=== PATIENT | male | born 1990 | race African-American/Black ===

== ENCOUNTER 2019-11-07 07:05 | Inpatient (IN) | payer OTHER ==
[~2019-11-07] VITALS: Ht 167.6 cm; Wt 68.9 kg
[2019-11-07 07:06] VITALS: BP 117/65
[2019-11-07 14:34] LABS: ABSOLUTE NEUTROPHILS 4.4 thou/uL (1.4-8.2); BASOPHILS 0.4 % (0.0-2.0); EOSINOPHILS 2.7 % (0.0-3.0); HEMATOCRIT 43.4 % (42.0-52.0); LYMPHOCYTES 28.8 % (24.0-44.0); MCH 33.3 pg (26.0-34.0); MCHC 34.6 g/dL (28.0-37.0); MCV 96.2 fL (80.0-100.0); MONOCYTES 7.4 % (1.0-8.0); PLATELET COUNT 347 thou/uL (150-400); POLYS 60.7 % (36.0-66.0); RBC 4.51 mil/uL (4.50-6.00); RDW 13.6 % (10.5-14.5); WBC 7.2 thou/uL (4.0-11.0)
[2019-11-07 14:38] LABS: CALCIUM 8.7 mg/dL (8.5-10.1); CREATININE 1.1 mg/dL (0.7-1.3); POTASSIUM 3.2 mmol/L (3.5-5.1)
[2019-11-07 15:48] LABS: URINE BILIRUBIN 1+ (Negative); URINE BLOOD NEGATIVE (Negative); URINE CLARITY CLEAR; URINE COLOR YELLOW; URINE GLUCOSE-RANDOM* NEGATIVE (Negative); URINE KETONES 1+ (Negative); URINE LEUKOCYTES-REFLEX NEGATIVE (Negative); URINE NITRITE-REFLEX NEGATIVE (Negative); URINE PROTEIN (DIPSTICK) NEGATIVE (Negative); URINE SPECIFIC GRAVITY 1.025 (1.005-1.035)
[2019-11-07 15:55] LABS: AMP/METHAMP POSITIVE (Negative); BARBITURATES Negative (Negative); BENZODIAZEPINES Negative (Negative); COCAINE POSITIVE (Negative); METHADONE Negative (Negative); OPIATES POSITIVE (Negative); PCP Negative (Negative)
[2019-11-07 16:10] VITALS: BP 108/75
[2019-11-07 16:30] VITALS: BP 108/75
[2019-11-07 16:51] VITALS: BP 105/70
--- NOTE | 2019-11-07 17:22 | NUR ---
PATIENT UP TO FLOOR AT 1720. WRISTBANDS ON, APPROPRIATE SCREENINGS DONE. PATIENT IS RESTING IN BED W EYES CLOSED; EDEMA TO BILATERAL EYES. HX AND EDUCATION COMPLETED. VOICES NO OTHER NEEDS. WILL CONTINUE TO MONITOR
[2019-11-07 17:48] VITALS: BP 105/70
[2019-11-07 19:12] LABS: MAGNESIUM 1.8 mg/dL (1.8-2.4); PHOSPHORUS 2.8 mg/dL (2.5-4.9)
[2019-11-08 04:54] VITALS: BP 104/69
[2019-11-08 06:03] LABS: ABSOLUTE NEUTROPHILS 2.8 thou/uL (1.4-8.2); BASOPHILS 0.5 % (0.0-2.0); EOSINOPHILS 3.1 % (0.0-3.0); HEMATOCRIT 41.8 % (42.0-52.0); MCHC 33.5 g/dL (28.0-37.0); MCV 98.7 fL (80.0-100.0); MONOCYTES 6.7 % (1.0-8.0); PLATELET COUNT 336 thou/uL (150-400); POLYS 42.7 % (36.0-66.0); RBC 4.24 mil/uL (4.50-6.00); RDW 13.8 % (10.5-14.5); WBC 6.7 thou/uL (4.0-11.0)
[2019-11-08 06:33] LABS: ALBUMIN 3.2 g/dL (3.4-5.0); CALCIUM 8.6 mg/dL (8.5-10.1); CREATININE 1.2 mg/dL (0.7-1.3); MAGNESIUM 1.7 mg/dL (1.8-2.4); PHOSPHORUS 3.1 mg/dL (2.5-4.9); POTASSIUM 3.9 mmol/L (3.5-5.1); TOTAL BILIRUBIN 0.3 mg/dL (0.2-1.0); TOTAL PROTEIN 6.9 g/dL (6.4-8.2)
--- NOTE | 2019-11-08 07:29 | NUR ---
ASSUMED PT CARE AROUND 1930. AXOX2. UNCOOERATIVE TO CARE. DOES NOT WATN TO TURN FOR ASSESSMENT, DOES NOT WANT TO PARTICIPATE IN ANY CONVERSATION THAN FOOD AND PAIN MEDS. VSS. ALL NEEDS MET SINCE PT'S VISION IS IMPAIRED. NO S/S ACUTE DISTRESS NOTED OR REPORTED AT THIS TIME. CARE TRANSFERRED TO AM RN AT THIS TIME.
[2019-11-08 07:48] VITALS: BP 116/73
[2019-11-08 15:09] VITALS: BP 118/76
--- NOTE | 2019-11-08 16:53 | NUR ---
ASSUMED CARE OF PATIENT AT SHIFT CHANGE. ASSESSMENT CHARTED. MEDICATIONS GIVEN PER MAR. VSS. PATIENTS MAIN COMPLAINT IS PAIN AND HUNGER. DOCTOR WAS PAGED AND AWARE. PATIENT IS VERY UPSET AND ANXIOUS. ONCE PRN PAIN MEDS WERE IN PYXIS, MEDS WERE ADMINISTERED W ASSIST FROM YARITZA FERNANDEZ. PATIENT STILL C/O SEVERE ANXIETY. DOCTOR WAS PAGED. PATIENTS EYES ARE CLOSED. NEEDS ASSIST TO BATHROOM. MAGNESIUM AND ABX INFUSING ON L AC W NO ISSUES. PRN PAIN MEDS ADMINISTERED AT 1100 DURING DOWNTIME. FALL PRECAUTIONS IN PLACE. WILL [id number] TO MONITOR PATIENT AND FOLLOW POC
--- NOTE | 2019-11-08 17:00 | NUR ---
I AGREE WITH NURSING ASSESSMENT AND NURSING NOTE DONE BY LON[facility]NURSING ASS[facility].
[2019-11-08 19:15] VITALS: BP 123/78
--- NOTE | 2019-11-08 21:00 | NUR ---
Pt. had disconnected his iv while vancomycin was infusing and had left his room. Security and house father were called. Then, pt. observed walking down the hallway towards his room. Pt. said he was looking for a vending machine. Pt. instructed to not touch his iv and only the nurses could dis- connect it due to infection control issues. Pt. c/o being anxious and wanted some ativan. Shaunna REDD called (see cpoe). He was also asked to not leave his room.
--- NOTE | 2019-11-09 04:59 | NUR ---
Pt. did sleep at short intervals during the night when checked on during frequent rounds. He calls out frequently for pain medication and snacks. Pain meds given as ordered (see emar) with some relief noted. Zofran also given iv for nausea with relief noted.
[2019-11-09 07:45] VITALS: BP 120/85
--- NOTE | 2019-11-09 09:47 | NUR ---
PT ADMITTED RELATED TO FACIAL TRAUMA, BILOATERAL HEMATOMA, CONJUCTIVITIS. CM REVIEWED CHART AND SPOKE [facility] CARE TEAM. CM CALLED AND SPOKE WITH PT AT [facility] YESTERDAY. PT INDICATED HE LIVES IN A SECOND FLOOR APARTMENT ALONE WITH 30 STEPS TO ENTER AND NONE INSIDE. 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 PT ASKED FOR ASSISTANCE IN RELOCATING TO [place]. CM INDICATED THAT CM DIDN'T HAVE RESOURCES TO ASSIST WITH RELOCATION. PT INDICATED HE IS INTERESTED IN GOING TO A SKILLED FACILITY [place]ON [place]. CM INDICATECD CM WOULD PROVIDE A SNF LIST FOR PT TO REVIEW. CARE TEAM INDICATING THAT PT WILL NEED 7-10 DAYS OF IV ABX UPON [place]. CM TO FOLLOW UP WITH PT.
--- NOTE | 2019-11-09 12:00 | NUR ---
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 Was seen bythe ESTHETICIAN waling out to the elevator andback, was informed he is not allowed sinve he is In-pt., COVD and MRSA test refused d/t bere clark MD informed.
--- NOTE | 2019-11-09 12:08 | NUR ---
CM FOLLOWED UP WITH PT AFTER PHYSICIAN VISITED THIS AM. HAD INDICATED THAT PT NO LONGER WANTED TO GO TO A FACILITY THAT HE WANTED TO GO HOME SO HE COULD GO TO AN OUTPATIENT PAIN MANAGEMENT APPOINTMENT. CM CALLED TO SPEAK WITH PT AND HE INDICATED THAT WASN'T WHAT HE HAD SAID THAT HE WAS AGREEABLE TO GOING SKILLED IF THAT IS WHAT THEY THOUGHT HE SHOULD DO. CM EXPLAINED THAT HE WOULDN'T BE ABLE TO GO TO OP PAIN APPOINTMENT IF HE WENT TO SNF. PT INDICATED THAT HE WAS THINKING THAT HE MIGHT JUST WANT TO GO HOME. PHYSICIAN INDICATED HE NEEDED TO BE SEEN BY OPTHALMOLOGY. CM [facility] AND THEY INDICATED THAT PT WAS SUPPOSED TO BE SEEN AT 10:20 THIS AM BUT NEVER SHOWED. CM APPOLOGIZED BUT THAT INFO HADN'T BEEN CONVEYED. HE IS TO BE SEEN BY DR. SULTANA AT 2:[address]. CM NOTIFIED NURSE. CM TO FOLLOW INDICATED WITH [place] PLANNING.
[2019-11-09] MEDS ORDERED: PERCOCET PO (13:12)
[2019-11-09] MEDS ORDERED: MIRALAX17 GM PO (13:12)
[2019-11-09 19:57] VITALS: BP 122/81
--- NOTE | 2019-11-10 06:02 | NUR ---
VSS-AFEBRILE. PLEASANT AND COOPERATIVE WITH STAFF OVERNIGHT. BOTH EYES REMAIN SWOLLEN SHUT, ICE PACK, AND EYE DROPS FOR RELIEF. PAIN PARTIALLY CONTROLLED WITH IV AND PO PAIN MEDICATIONS. CALLS APPROPRIATELY FOR ANY NEEDED ASSISTANCE.
[2019-11-10 08:42] VITALS: BP 122/84
--- NOTE | 2019-11-10 10:23 | NUR ---
per hospitalist ks home no needs today. pt will need cab voucher. he will be going directly to his already [facility] [place], [address] [facility] [id number] needs to be there by noon with his id, list medication in bottles and insurance card per coremaking machine operator [phone]. cm passed on information to bedside nurse and hospitalist.
[2019-11-10] MEDS ORDERED: KEFLEX500 M2 PO (10:30)
[2019-11-10 10:32] VITALS: BP 122/84
--- NOTE | 2019-11-10 12:27 | NUR ---
Assumed pt care this am, VS stable pt wanting to have all pain meds given at one time and iv nausea meds. Informed pt this is not how meds are given and we go by the pain scale, was informed that by the pt that this was given to her at night. Pt was making a fuss on getting his pain meds asking for more each time, demanded that his medications be sent to our pharmacy downstairs though he does not have money for the copay. Initially set up a cab voucher for said "appointment in the pain clinic", then at the last minute the pt just wanted to go home since he needed to have his phone charged. IV removed, prescriptions given to the pt aling with dc instructions. Cab voucher given , pt was wheeled to security, pt is now dc.
== END 2019-11-10 12:52 | disposition home or self-care (01) | DRG 603 ==
LOC: EDBD 07:05 → ER 07:05 → 4W 16:44
PROVIDERS: Emergency Medicine; Internal Medicine; ADMIT Surgery; ATTEND Surgery
DX: L03.211 Cellulitis of face (principal); L03.213 Periorbital cellulitis; F17.210 Nicotine dependence, cigarettes, uncomplicated; S09.8XXA Other specified injuries of head, initial encounter; S02.2XXA Fracture of nasal bones, initial encounter for closed fracture; J44.9 Chronic obstructive pulmonary disease, unspecified; E11.9 Type 2 diabetes mellitus without complications; I10 Essential (primary) hypertension; G89.29 Other chronic pain; E05.90 Thyrotoxicosis, unspecified without thyrotoxic crisis or storm; M06.9 Rheumatoid arthritis, unspecified; Y09 Assault by unspecified means; Z20.828 Contact with and (suspected) exposure to other viral communicable diseases; Z88.8 Allergy status to other drugs, medicaments and biological substances; Z88.6 Allergy status to analgesic agent; Z91.040 Latex allergy status; Y08.89XA Assault by other specified means, initial encounter; Y93.89 Activity, other specified; Y92.89 Other specified places as the place of occurrence of the external cause; Y99.8 Other external cause status
CPT/HCPCS: 10040

== ENCOUNTER 2019-11-12 01:41 | Emergency (ER) | payer OTHER ==
[~2019-11-12] VITALS: Ht 170.2 cm; Wt 72.6 kg
[~2019-11-12 01:41] MED LIST: KEFLEX500 M2 PO; MIRALAX17 GM PO; PERCOCET PO
[2019-11-12 05:26] VITALS: BP 132/76
== END 2019-11-12 05:26 | disposition home or self-care (01) ==
LOC: ER 01:41
DX: R51 Headache (principal); J44.9 Chronic obstructive pulmonary disease, unspecified; F17.210 Nicotine dependence, cigarettes, uncomplicated; Z79.899 Other long term (current) drug therapy; Z91.040 Latex allergy status; Z88.8 Allergy status to other drugs, medicaments and biological substances; Z91.048 Other nonmedicinal substance allergy status